=== PATIENT | female | born 1995 | race Caucasian/White ===

== ENCOUNTER 2025-01-10 04:14 | Emergency (ER) | payer BC, MEDICAID ==
[~2025-01-10] VITALS: Ht 167.6 cm; Wt 90.9 kg
[2025-01-10 04:29] VITALS: BP 124/72; PULSE 86; RESP 16; TEMP 97.7; O2SAT 100
[2025-01-10] MEDS ORDERED: IBUP-1554 PO (04:39)
[2025-01-10] MEDS ORDERED: HYDR-4062 PO (04:39)
[2025-01-10] MEDS: NEOMYCIN/POLYMYXIN B/HYDROCORT 10 ML OTIC SUSPENSION AD ONE (04:44)
[2025-01-10] MEDS: HYDROCODONE/ACETAMINOPHEN 5-325 MG TABLET PO ONE (04:45)
== END 2025-01-10 04:58 | disposition home or self-care (01) ==
LOC: EMS 04:39
DX: H60.91 Unspecified otitis externa, right ear (principal)
CPT/HCPCS: 99283

== ENCOUNTER 2025-05-09 20:42 | Emergency (ER) | payer BC, MEDICAID ==
[~2025-05-09] VITALS: Ht 170.2 cm; Wt 100.9 kg
[~2025-05-09 20:42] MED LIST: HYDR-4062 PO; IBUP-1554 PO
[2025-05-09 20:49] VITALS: BP 136/87; PULSE 102; RESP 19; TEMP 97.9; O2SAT 99
== END 2025-05-09 23:40 | disposition left against medical advice (07) ==
LOC: EMS 20:48
DX: R06.02 Shortness of breath (principal); R11.0 Nausea; Z91.013 Allergy to seafood; Z53.21 Procedure and treatment not carried out due to patient leaving prior to being seen by health care provider